=== PATIENT | female | born 2000 | race Caucasian/White ===

== ENCOUNTER 2024-12-09 10:41 | Emergency (ER) | payer OTHER, SELFPAY ==
[2024-12-09 10:43] VITALS: BP 115/67
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
== END 2024-12-09 12:50 | disposition home or self-care (01) ==
LOC: EMR 10:41
PROVIDERS: EMERGENCY PHYSICIAN Emergency Medicine
DX: G44.309 Post-traumatic headache, unspecified, not intractable (principal); V43.52XA Car driver injured in collision with other type car in traffic accident, initial encounter; Y92.410 Unspecified street and highway as the place of occurrence of the external cause
CPT/HCPCS: 99282